=== PATIENT | male | born 1970 | race Caucasian/White ===

== ENCOUNTER 2018-06-12 13:00 | Emergency (ER) | payer MEDICAID, SELFPAY ==
[2018-06-12 13:01] VITALS: BP 129/81; PULSE 71; RESP 16; TEMP 36.3; O2SAT 97; BMI 25.0
--- NOTE | 2018-06-12 13:39 | ED.DCSUM_ITS ---
- ER Visit Summary Date of Service: 06/12/18 Chief Complaint: Vertigo History of Present Illness: The patient is a 47 M intermittent spinning sensations after waking at 5 AM this morning. Intermittent symptoms there sometimes at rest or with head movement. Nausea vomiting x2 no hematemesis. No recent illness. No sinus congestion or ear ringing. No belly pain. No urinary symptoms. No previous similar symptoms in the past. Physical Examination: General: Alert and oriented ?3, no acute distress HEENT: Normocephalic, atraumatic. Moist mucosa membranes. No nystagmus Neck: supple, nontender. Cardiovascular: Regular rate and rhythm, no murmurs Respiratory: Normal breath sounds, symmetric, no distress Abdomen: Soft, nontender, nondistended Extremities: Nontender, no edema, pulses intact ?4 Neuro: no focal neurological deficits. Positive Jono-Hallpike on the right. Test Results: [] Emergency Department Course and Treatment: Patient with positive Jono-Hallpike to the right, no focal deficits. Staci maneuver was performed in the ED with improvement of symptoms, however with ambulation feeling unsteady with return of symptoms. Treated with Antivert, monitored, symptoms improved. No emesis in the ED. Short prescription given for symptom control. Monitoring symptoms. Signs and symptoms discussed return, otherwise given follow-up with on-call physician. Treatment Plan: [] Disposition: Discharge Impression: 1. Benign positional vertigo This note was generated with Thingies dictation software. It may contain incorrect words, spelling, and punctuation that were not noted in review of the chart prior to signing ED Disposition - Plan for ED Patient: Disposition: Home or Assisted Living Diagnosis: Vertigo Instructions: ED BPV Vertigo Prescriptions: Meclizine HCl [Antivert] 25 mg PO 4X/DAY PRN PRN #20 tablet PRN Reason: Dizziness Referrals: Care Physician,No Primary [Primary Care Provider] - Yobani,Maria Ines, DO [NON-STAFF] - 5-7 Days
[2018-06-12] MEDS: Meclizine HCl 25 MG Tablet PO (14:39)
[2018-06-12 15:18] VITALS: BP 130/79; PULSE 78; RESP 14; O2SAT 100
[2018-06-12 15:51] VITALS: BP 104/102; PULSE 87; RESP 14; O2SAT 99
== END 2018-06-12 15:51 | disposition home or self-care (01) ==
PROVIDERS: Emergency Provider Emergency Medicine
DX: H81.11 Benign paroxysmal vertigo, right ear (principal)
CPT/HCPCS: 99283

== ENCOUNTER 2020-09-18 12:38 | Emergency (ER) | payer MEDICAID, SELFPAY ==
[2020-09-18 12:39] VITALS: BP 133/89; PULSE 86; RESP 16; TEMP 36.5; O2SAT 96; BMI 25.0
--- NOTE | 2020-09-18 13:07 | VDLE_ITS ---
Reason For Study: PAIN RIGHT GSV is normal. CFV is compressible, spontaneous, phasic, competent and demonstrates normal augmentation. FV is compressible, spontaneous, phasic, competent and demonstrates normal augmentation. POP V is compressible, spontaneous, phasic, competent and demonstrates normal augmentation. T/P Trunk is compressible. PTV is compressible. RT PerV is compressible. VL/Venous Duplex US, Unilateral Interpretation Summary There is no evidence of right lower extremity deep vein thrombosis. Right great saphenous vein appears patent and compressible segmentally. Ordering Physician: John Weldon Performed By: Keiry Ayers, JELANI, RVT
--- NOTE | 2020-09-18 13:12 | EDS_ITS ---
HPI History of Present Illness Chief Complaint: Lower Extremity Injury Narrative Narrative: 50-year-old male presenting with right calf pain. He states that it started about 4 days. He has been ambulatory on it. Today he stepped off of a truck and felt like somebody hit him in the back of the leg with a rock. He is unable to ambulate on it now. He points to the proximal calf. He denies history of DVT/PE. He does not have any risk factors for DVT. Patient not having chest pain or shortness of breath. He states he has no significant medical history. PFSH PFSH Home Medications naproxen [Naprosyn] 500 mg PO BID PRN #30 tab 09/18/20 [Rx Last Taken Unknown] Allergy/AdvReac Type Severity Reaction Status Date / Time No Known Allergies Allergy Verified 09/18/20 12:39 Social History Smoking Status: Never smoker ROS ROS ED Constitutional Constitutional ED: Denies chills or fever(s) Eyes Eyes: Denies blurry vision or change in vision ENT ENT ED: Denies rhinorrhea or sore throat Cardiovascular Cardiovascular: Denies chest pain or palpitations Respiratory/Chest Respiratory/Chest: Denies cough or dyspnea Gastrointestinal Gastrointestinal: Denies abdominal pain, nausea or vomiting Genitourinary Genitourinary ED: Denies dysuria or hematuria Musculoskeletal Musculoskeletal: Reports other Details: Right calf pain Integumentary Denies rash Neurologic Neurologic: Denies headache(s) or weakness EXAM Physical Exam Const Vital Signs: 09/18/20 12:39 09/18/20 14:08 Temperature 97.7 F L Temperature Source Temporal Pulse Rate 86 78 Respiratory Rate 16 18 Blood Pressure 133/89 H Blood Pressure Mean 103 Pulse Ox 96 97 Oxygen Delivery Method Room Air HEENT Reports moist mucous membranes Negative for trauma Resp normal respiratory effort and clear to auscultation bilaterally Cardio regular rate and regular rhythm Extremity Extremity Narrative: Tenderness to palpation right posterior calf. No cords palpated. Patient unable to bear weight. Right lower extremity pulses 2+. Sensation and motor are intact. Neuro oriented x3 Sensorium / Orientation: alert Psych mental status grossly normal Skin no rashes or lesions noted and no wounds MDM MDM MDM Narrative Medical decision making narrative: Patient has had pain in the right calf for 4 days. He states today it had abruptly worsened. He is unable to ambulate. I believe he has a gastrocnemius tear however he had some mild pain before he injured himself today. I did obtain a venous Doppler of the right lower extremity which shows no acute DVT. Patient placed in an Mg wrap, given crutches. Counseled on rest, ice, elevation, compression. Patient given follow-up PCP. Patient stable for discharge. Impression: 1. Gastrocnemius tear Radiography Diagnostic Testing: Radiology Impression Venous Doppler Study 09/18/20 13:07 Interpretation Summary There is no evidence of right lower extremity deep vein thrombosis. Right great saphenous vein appears patent and compressible segmentally. Ordering Physician: John Weldon Performed By: Keiry Ayers, JELANI, RVT Discharge Plan Triage Chief Complaint: Lower Extremity Injury ED Provider: John Weldon Dx/Rx/DC Orders Instructions: Gastrocnemius Muscle Tear Prescriptions: New naproxen [Naprosyn] 500 mg tablet 500 mg PO BID PRN (Reason: pain) Qty: 30 RF: 0 Primary Care Provider: Care Physician,No Primary Referrals: Opal Rabago MD [STAFF PHYSICIAN] - As soon as possible Care Physician,No Primary [Primary Care Provider] - Disposition Disposition: Home, Self Care Discharge Date/Time: 09/18/20 14:09
[2020-09-18] MEDS: oxyCODONE 5 MG Tablet PO (13:27)
[2020-09-18 14:08] VITALS: PULSE 78; RESP 18; O2SAT 97
== END 2020-09-18 14:09 | disposition home or self-care (01) ==
PROVIDERS: Emergency Provider Student in an Organized Health Care Education/Training Program
DX: S86.911A Strain of unspecified muscle(s) and tendon(s) at lower leg level, right leg, initial encounter (principal); X58.XXXA Exposure to other specified factors, initial encounter
CPT/HCPCS: 93971; 99284

== ENCOUNTER 2021-07-02 14:49 | Emergency (ER) | payer MEDICAID, SELFPAY ==
[2021-07-02 14:49] VITALS: BP 141/101; PULSE 98; RESP 18; TEMP 36.8; O2SAT 99; BMI 25.0
--- NOTE | 2021-07-02 15:24 | RAD_ITS ---
STUDY: X-RAY - RIGHT SHOULDER REASON FOR EXAM: Male, 51 years old. Injury/Pain TECHNIQUE: 4 view(s) of the shoulder. COMPARISON: None. FINDINGS: Normal glenohumeral articulation. Normal acromioclavicular joint. Normal acromion. There is deformity of the humeral head most likely secondary to prior injury. Degenerative spur is seen along the inferior medial aspect of the humeral head. The soft tissue structures are unremarkable. Normal visualized pulmonary apex. RAD/Shoulder min 2 Views IMPRESSION: Deformity of the humeral head most likely secondary to prior trauma. Electronically Signed: Chacorta Calvillo MD at 15:39 EDT ,
[2021-07-02] MEDS: Naproxen 500 MG Tablet PO (15:26)
--- NOTE | 2021-07-02 15:29 | EDS_ITS ---
HPI History of Present Illness Chief Complaint: Upper Extremity Injury Detail of Chief Complaint: Post 5-year-old right shoulder pain since fishing yesterday Informant: patient and spouse/S.O. Occured/Mechanism Comment: Patient. 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 He presents because of atraumatic right shoulder pain. States pain occurs occasionally and is transient. He went fishing. He has significant pain that he locates over the supraspinatus region. He attempted to AB duct and is only able to get to 80-90 degrees prior to stopping. He denies paresthesia, anesthesia or motor weakness. He denies fever, chills or night sweats. He denies respiratory or cardiac symptoms. Patient had a [place] procedure done 20 years ago. Surgery was performed at [facility]. He has not had any dislocation since the surgery. He states his entire rotator cuff was torn. And he had issues with chronic subluxation/dislocation prior to surgery. Prior similar symptoms: Yes Recent Illness/Hospitalization: No PFSH [facility] Medical History (Updated 07/02/21 @ 15:[address] Long Shaffer MD) Rotator cuff arthropathy Home Medications naproxen [Naprosyn] 500 mg PO BID PRN #30 tab 09/18/20 [Rx Last Taken Unknown] naproxen 500 mg PO BID #14 tab 07/02/21 [Rx Last Taken Unknown] Allergy/AdvReac Type Severity Reaction Status Date / Time No Known Allergies Allergy Verified 07/02/21 14:54 Social History (Updated 07/02/21 @ 15:[address] Long Shaffer MD) household members: spouse Smoking Status: Never smoker substance use type: does not use ROS ROS ED Constitutional Constitutional ED: Denies chills, fever(s), subjective, sweats or weight loss Cardiovascular Cardiovascular: Denies chest pain, palpitations or racing heartbeat Respiratory/Chest Respiratory/Chest: Denies cough, dyspnea or dyspnea on exertion Musculoskeletal Musculoskeletal: Reports other Details: Posterior right shoulder ; Denies back pain, myalgias or neck pain Integumentary Denies Abrasions or rash Neurologic Neurologic: Denies paresthesias or weakness Hematologic/Lymphatic Hematologic/Lymphatic: Denies easy bleeding or easy bruising EXAM Physical Exam Const Vital Signs: 07/02/21 14:49 Temperature 98.3 F Temperature Source Temporal Pulse Rate 98 Respiratory Rate 18 Blood Pressure 141/101 H Blood Pressure Mean 114 Pulse Ox 99 Oxygen Delivery Method Room Air Positive well nourished and well developed General Appearance ED: well developed and NAD; Negative for cyanotic or diaphoretic HEENT normocephalic and atraumatic Eyes PERRL and EOMs intact bilaterally Neck full ROM and supple General: Negative for tenderness Resp normal respiratory effort and clear to auscultation bilaterally Cardio regular rate, regular rhythm, S1 normal heart sound, S2 normal heart sound and no murmurs Back/Spine no CVA tenderness Back/Spine Narrative: Over the supraspinatus muscle/tendon/rotator cuff Cervical Spine: Negative for cervical spine tenderness Thoracic Spine / Upper Back: Negative for thoracic spinal tenderness Lumbar Spine / Lower Back: Negative for lumbar spinal tenderness Extremity normal to inspection; Negative for full ROM Extremity Narrative: Pain with abduction past 90 degrees. Negative drop test. Axillary, median, radial and ulnar function intact. General Extremety ED: Negative for edema General Extremity: Negative for edema Neuro oriented x3, CN's II-XII intact bilaterally and no focal motor deficits Sensorium / Orientation: alert Psych mental status grossly normal Skin Lesions: no lesions Rashes: no rashes Trauma: no lacerations or abrasions MDM MDM MDM Narrative Medical decision making narrative: Clinically patient has findings consistent with impingement syndrome. Since he had prior surgery Ultane x-ray to determine if there is any radiologic pathology that would explain his pain. He was treated with NSAID since he has no contraindication. Plan is NSAIDs and referral to orthopedics. History and physical is consistent with impingement syndrome Radiography Diagnostic Testin view x-ray of the right shoulder was performed and independently reviewed and interpreted by me as no acute pathology. There is abnormality of the humeral head due to prior surgery based on what the patient and his spouse told me. The AC joint is normal. The ER is no evidence of subluxation or dislocation. There is no significant arthritic changes. Discharge Plan Triage Chief Complaint: Upper Extremity Injury ED Provider: Long Shaffer Dx/Rx/DC Orders Clinical Impression: Impingement syndrome of right shoulder Instructions: ED Shoulder Impingement Syndrome Prescriptions: New naproxen 500 MG tablet 500 mg PO BID Qty: 14 RF: 0 No Action naproxen [Naprosyn] 500 mg tablet 500 mg PO BID PRN (Reason: pain) Qty: 30 RF: 0 Primary Care Provider: Care Physician,No Primary Referrals: Jatin Dacosta DO [STAFF PHYSICIAN] - 1 Week if not improving Care Physician,No Primary [Primary Care Provider] - Disposition Disposition: Home, Self Care
== END 2021-07-02 16:08 | disposition home or self-care (01) ==
PROVIDERS: Emergency Provider Emergency Medicine; Visit Provider Emergency Medicine
DX: M75.41 Impingement syndrome of right shoulder (principal)
CPT/HCPCS: 73030; 99283

== ENCOUNTER 2023-02-11 15:41 | Emergency (ER) | payer MEDICAID, SELFPAY ==
[2023-02-11 15:43] VITALS: BP 145/108; PULSE 109; RESP 18; TEMP 36.4; O2SAT 96; BMI 26.8
--- NOTE | 2023-02-11 17:14 | EX.ED.DYSGE1 ---
HPI History of Present Illness Chief Complaint: Dizziness Informant: patient Narrative Narrative: 52-year-old male presenting to the emergency room with intermittent vertiginous symptoms. Patient states for the past 2 weeks he has had episodes where he will bend over or change positions and feel dizzy. He notes some sneezing and some nasal congestion and a pressure in the right ear. He notes that he breathes better through the left side of his nose than the right. He has had vertigo before which she describes as a severe sudden onset of room spinning. He states he has been doing his vertigo exercises. He has a doctor's appointment to establish primary care in February. He denies any speech arm or leg or vision changes. No headache. No trauma. No fevers. PFSH [facility] Medical History Rotator cuff arthropathy Home Medications naproxen 500 mg tablet (Naprosyn) 500 mg PO BID PRN pain #30 tabs 09/18/20 [Rx Last Taken Unknown] naproxen 500 mg tablet 500 mg PO BID #14 tabs 07/02/21 [Rx Last Taken Unknown] cetirizine 10 mg capsule (Zyrtec) 10 mg PO DAILY #14 CAPSULES 02/11/23 [Rx Last Taken Unknown] triamcinolone acetonide 55 mcg nasal spray aerosol (Nasacort) 2 spray intranasal DAILY #16.9 mL 02/11/23 [Rx Last Taken Unknown] Allergy/AdvReac Type Severity Reaction Status Date / Time No Known Allergies Allergy Verified 02/11/23 15:43 Social History household members: spouse Smoking Status: Never smoker substance use type: does not use ROS ROS ED Constitutional Constitutional ED: Denies chills or weight loss Eyes Eyes: Denies change in vision or diplopia ENT ENT ED: Reports other Details: Right ear pressure nasal congestion sneezing vertigo feeling (intermittent) ; Denies ear pain, rhinorrhea or sore throat Cardiovascular Cardiovascular: Denies chest pain, orthopnea, palpitations or racing heartbeat Respiratory/Chest Respiratory/Chest: Denies cough, dyspnea or orthopnea Gastrointestinal Gastrointestinal: Denies abdominal pain, diarrhea, nausea or vomiting Genitourinary Genitourinary ED: Denies dysuria, hematuria or urinary frequency Musculoskeletal Musculoskeletal: Denies arthralgias or myalgias Integumentary Denies abscess or rash Neurologic Neurologic: Denies headache(s) or weakness Psychiatric Psychiatric: Denies anxiety, depression, suicidal ideation or suicidal thoughts Endocrine Endocrinology: Denies polydipsia, polyphagia or polyuria Allergic/Immunologic Allergic/Immunologic ED: Denies mouth swelling, tongue swelling or urticaria EXAM Physical Exam Const Vital Signs: 02/11/23 15:43 Temperature 97.5 F L Temperature Source Temporal Pulse Rate 109 H Respiratory Rate 18 Blood Pressure 145/108 H Blood Pressure Mean 120 Pulse Ox 96 Oxygen Delivery Method Room Air Positive well nourished and well developed General Appearance ED: well developed HEENT Reports normocephalic, head/scalp atraumatic and moist mucous membranes HEENT Narrative: There is evidence of a right ear effusion. Tympanic membrane is not erythematous. He has some mild nasal turbinate edema. Eyes PERRL and EOMs intact bilaterally Neck no lymphadenopathy, supple and no JVD Resp normal respiratory effort and clear to auscultation bilaterally Cardio regular rate, regular rhythm and no murmurs GI normal to inspection, nondistended, normoactive bowel sounds and non-tender Palpation: soft Back/Spine no CVA tenderness and normal ROM Extremity normal to inspection General Extremety ED: Negative for edema General Extremity: Negative for edema Neuro oriented x3 and CN's II-XII intact bilaterally Sensorium / Orientation: alert Motor Exam: strength 5/5 throughout Psych mental status grossly normal Mood & Affect: Negative for depressed or tearful Skin no rashes or lesions noted and no wounds MDM MDM MDM Narrative Medical decision making narrative: Patient appears to have a serous otitis. We can try using some Afrin and Zyrtec. We can also try Nasacort daily spray. I can refer him to ENT if its not improving. He was advised that this is generally self-limited and that his eustachian tube can open up and drain would most likely help. Patient notes understanding of her plan Discharge Plan Triage Chief Complaint: Dizziness Other Complaint: Ear Problem ED Provider: Bernabe Chappell Dx/Rx/DC Orders Clinical Impression: Acute serous otitis media, Vertigo Instructions: ED Earache Without Infection (Adult) Prescriptions: New Zyrtec 10 mg capsule 10 mg PO DAILY Qty: 14 0RF triamcinolone acetonide [Nasacort] 55 mcg aerosol,spray 2 spray intranasal DAILY Qty: 16.9 0RF Rx Instructions: administer into each nostril No Action naproxen [Naprosyn] 500 mg tablet 500 mg PO BID PRN (Reason: pain) Qty: 30 0RF naproxen 500 MG tablet 500 mg PO BID Qty: 14 0RF Primary Care Provider: Hua Neri NP Referrals: Kemal Banegas MD [Med Staff - Active Staff] - As Needed (for ENT) Care Physician,No Primary [Non-Staff] - Disposition Disposition: Home, Self Care Discharge Date/Time: 02/11/23 17:00
== END 2023-02-11 17:00 | disposition home or self-care (01) ==
PROVIDERS: Emergency Provider Emergency Medicine; PCP Nurse Practitioner Family; Visit Provider Emergency Medicine
DX: H65.00 Acute serous otitis media, unspecified ear (principal); R42 Dizziness and giddiness
CPT/HCPCS: 99282

== ENCOUNTER 2025-02-16 08:35 | Emergency (ER) | payer MEDICAID, SELFPAY ==
[2025-02-16 08:36] VITALS: BP 124/98; PULSE 96; RESP 16; TEMP 36; O2SAT 100; BMI 26.6
--- NOTE | 2025-02-16 09:11 | EX.ED.UPPERE ---
HPI History of Present Illness Chief Complaint: Upper Extremity Injury Detail of Chief Complaint: Right elbow pain Informant: patient Narrative Narrative: Patient presents with right elbow pain that started around 3 AM this morning. Seem to wake him from sleep. He states that he had a shoulder replacement about April 21 of this year. He has been going through physical therapy. 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 He has had no falls. He is right-hand dominant. He messaged his orthopedic surgeon and was told to come in and get evaluated. [facility] Medical History Rotator cuff arthropathy Home Medications ?Medication ?Instructions ?Recorded ?Last Taken ?Type naproxen 500 mg tablet (Naprosyn) 500 mg PO BID PRN pain #30 tabs 09/18/20 Unknown Rx naproxen 500 mg tablet 500 mg PO BID #14 tabs 07/02/21 Unknown Rx cetirizine 10 mg capsule (Zyrtec) 10 mg PO DAILY #14 CAPSULES 02/11/23 Unknown Rx triamcinolone acetonide 55 mcg 2 spray intranasal DAILY #16.9 mL 02/11/23 Unknown Rx nasal spray aerosol (Nasacort) naproxen 500 mg tablet 500 mg PO BID #14 tabs 02/16/25 Unknown Rx oxycodone-acetaminophen 5 mg-325 1 tab PO Q8H PRN pain 3 days #12 02/16/25 Unknown Rx mg tablet (Percocet) tabs Allergy/AdvReac Type Severity Reaction Status Date / Time No Known Allergies Allergy Verified 02/16/25 08:36 Social History household members: spouse Smoking Status: Never smoker substance use type: does not use ROS ROS ED Review of Systems ROS Unobtainable: other Constitutional Constitutional ED: Reports lethargy; Denies chills, fever(s), sweats or weight loss Eyes Eyes: Denies blurry vision, change in vision or diplopia ENT ENT ED: Denies rhinorrhea or sore throat Cardiovascular Cardiovascular: Denies chest pain, orthopnea or racing heartbeat Respiratory/Chest Respiratory/Chest: Denies cough, dyspnea, dyspnea on exertion, orthopnea or sputum Gastrointestinal Gastrointestinal: Denies abdominal pain, diarrhea, nausea or vomiting Genitourinary Genitourinary ED: Denies dysuria, hematuria or urinary frequency Musculoskeletal Musculoskeletal: Reports other Details: Right elbow pain ; Denies arthralgias, back pain, myalgias or neck pain Integumentary Denies abscess, Abrasions or rash Neurologic Neurologic: Denies headache(s) or weakness Psychiatric Psychiatric: Denies anxiety, depression or suicidal thoughts Endocrine Endocrinology: Denies polydipsia, polyphagia or polyuria Hematologic/Lymphatic Hematologic/Lymphatic: Denies easy bleeding, easy bruising or lymphadenopathy Allergic/Immunologic Allergic/Immunologic ED: Denies mouth swelling, tongue swelling or urticaria EXAM Physical Exam Const Vital Signs: 02/16/25 08:36 Temperature 96.8 F L Temperature Source Temporal Pulse Rate 96 Respiratory Rate 16 Blood Pressure 124/98 H Blood Pressure Mean 106 Pulse Ox 100 Oxygen Delivery Method Room Air Positive well nourished and well developed General Appearance ED: well developed and NAD HEENT Reports TM's clear and moist mucous membranes normocephalic and atraumatic; Negative for trauma or tenderness Tympanic Membrane ED: Yes TM's clear Eyes PERRL and EOMs intact bilaterally General Eye ED: Negative for pale conjunctiva or scleral icterus Neck no lymphadenopathy, supple and no JVD General: Negative for tenderness Chest Wall inspection of chest normal and palpation of chest normal Chest: Negative for tenderness Resp normal respiratory effort and clear to auscultation bilaterally Effort and Inspection: Negative for respiratory distress or pain with movement Auscultation: Negative for rhonchi, wheezes or diminished lung sounds Cardio regular rate, regular rhythm, S1 normal heart sound, S2 normal heart sound and no murmurs Peripheral Pulses: pulses 2+ throughout GI normal to inspection, nondistended, normoactive bowel sounds, soft to palpation, non-tender, non-distended and no masses Back/Spine no CVA tenderness and no thoracic nor lumbar tenderness Extremity Extremity Narrative: Right elbow-patient has tenderness palpation over the tricep tendon and insertion medially. This seems to reproduce his pain. There is no joint effusion. There is no erythema. He is neurovascular intact distally. He has pain with flexion at the elbow. No pain with pronation or supination of the elbow. General Extremety ED: Negative for edema General Extremity: Negative for edema Neuro oriented x3, CN's II-XII intact bilaterally, no sensory deficits noted and gait normal Sensorium / Orientation: awake, alert, oriented to person, oriented to place and oriented to time Motor Exam: strength 5/5 throughout and strength abnormal Psych mental status grossly normal Skin no rashes or lesions noted and no wounds Discharge Plan Triage Chief Complaint: Upper Extremity Injury ED Provider: Zena Larsen Dx/Rx/DC Orders Clinical Impression: Elbow tendinitis Instructions: ED Tendonitis Prescriptions: New oxycodone-acetaminophen [Percocet] 5-325 mg tablet 1 tab PO Q8H PRN (Reason: pain) 3 Days Qty: 12 0RF naproxen 500 mg tablet 500 mg PO BID Qty: 14 0RF No Action naproxen [Naprosyn] 500 mg tablet 500 mg PO BID PRN (Reason: pain) Qty: 30 0RF naproxen 500 MG tablet 500 mg PO BID Qty: 14 0RF Zyrtec 10 mg capsule 10 mg PO DAILY Qty: 14 0RF triamcinolone acetonide [Nasacort] 55 mcg aerosol,spray 2 spray intranasal DAILY Qty: 16.9 0RF Rx Instructions: administer into each nostril Primary Care Provider: Hua Neri NP Referrals: Hua Neri NP, [employer]PERATOR-[employer] [Primary Care Provider, Medical] Activity Restrictions/Additional Instructions: Follow-up with your orthopedic surgeon within next 3 to 5 days Print Language: Senegalese Disposition Disposition: Home, Self Care
[2025-02-16 09:34] VITALS: BP 141/78; PULSE 78; RESP 16; TEMP 37.1; O2SAT 99
== END 2025-02-16 09:35 | disposition home or self-care (01) ==
LOC: ED 09:22
PROVIDERS: Emergency Provider Emergency Medicine; PCP Nurse Practitioner Family; Visit Provider Emergency Medicine
DX: M77.9 Enthesopathy, unspecified (principal); M25.521 Pain in right elbow; Z96.611 Presence of right artificial shoulder joint
CPT/HCPCS: 99282